=== PATIENT | female | born 1950 | race Caucasian/White ===

== ENCOUNTER 2017-07-21 09:36 | Emergency (ER) | payer OTHER, MEDICARE ==
--- NOTE | 2017-07-21 10:15 | ED CARDIAC/CP/PALPITATIONS ---
History of Present Illness General Chief Complaint: Palpitations Stated Complaint: PALPITATIONS,SOB Source: patient Exam Limitations: no limitations Vital Signs & Intake/Output Vital Signs & Intake/Output Vital Signs Date Time Temp Pulse Resp B/P B/P Pulse O2 O2 Flow FiO2 Mean Ox Delivery Rate 07/21 1136 97.0 63 16 138/65 95 Room Air Room Air 07/21 1024 97 Room Air 07/21 0947 96.5 72 16 164/61 96 Room Air Allergies Coded Allergies: Sulfa (Sulfonamide Antibiotics) (Intermediate, HIVES 07/21/17) Reconcile Medications Atenolol 25 MG TABLET 1 TAB PO DAILY HTN (Reported) Lisinopril 20 MG TABLET 1 TAB PO DAILY HTN (Reported) Omeprazole 20 MG CAPSULE. 1 CAP PO DAILY GERD (Reported) Triage Note: PT TO ED C/O PALPITATIONS SINCE THIS AM. DENIES ANY CP. HR IN 70'S VIA EKG. REPORTS SHE HAS HAD SOB OVER THE PAST FEW DAYS WELL. HR FLUCTUATING ON FINGER PROBE. UPON RADIAL PALPATION PT NOTED TO HAVE IRREGULAR RHYTHM. Triage Nurses Notes Reviewed? yes Onset: YEST Duration: hour(s):, continues in ED, intermittent, waxing and waning Timing: remote history Quality/Severity: IRREG HR Location: substernal Activities at Onset: AT WORK (NOT EXERTING HERSELF) HPI: Patient presents for evaluation of palpitations that began yesterday while at work. Past History Travel History Traveled to [place] past 21 day No Medical History Any Pertinent Medical History? see below for history Neurological: NONE EENT: NONE Cardiovascular: hypertension, hyperlipidemia Gastrointestinal: GERD Renal: NONE Musculoskeletal: NONE Psychiatric: NONE Endocrine: NONE Blood Disorders: NONE Cancer(s): NONE ELIGIBILITY EXAMINER/Reproductive: NONE Surgical History Surgical History: non-contributory Psychosocial History What is your primary language Khmer Tobacco Use: Never used Family History Hx Contributory? No Review of Systems Review of Systems Constitutional: Reports: no symptoms. EENTM: Reports: no symptoms. Respiratory: Reports: see HPI. Cardiovascular: Reports: see HPI. GI: Reports: no symptoms. Genitourinary: Reports: no symptoms. Musculoskeletal: Reports: no symptoms. Skin: Reports: no symptoms. Neurological/Psychological: Reports: no symptoms. Hematologic/Endocrine: Reports: no symptoms. Immunologic/Allergic: Reports: no symptoms. All Other Systems: Reviewed and Negative Physical Exam Physical Exam Cardiovascular: see below Comments: Gen.: Well-nourished, well-developed, no acute respiratory distress. Head: Normocephalic, atraumatic. Eyes: Normal inspection bilaterally Ears: Normal inspection bilaterally Nose: Normal inspection Throat/mouth : Moist mucosa Neck: Supple, full range of motion, no goiter Heart: Regular rate and rhythm, no murmurs rubs or gallops Lungs: Clear to auscultation bilaterally with normal air entry Chest: Nontender Back: Normal range of motion Abdomen: Soft, nontender, nondistended, normal bowel sounds Extremities: Normal range of motion grossly, equal radial pulses, no cyanosis clubbing or edema Neurologic: Cranial nerves grossly intact, speech is clear Skin: warm and dry Psychiatric: Calm, cooperative, no apparent delusions or hallucinations Core Measures ACS in differential dx? No CVA/TIA Diagnosis No Sepsis Present: No Sepsis Focused Exam Completed? No Progress Differential Diagnosis: atrial fibrillation, sinus tachycardia, PVCs, PACs, electrolyte abnormality, dehydration, acute coronary syndrome Plan of Care: Orders Procedure Date/time Status URINALYSIS 07/21 1118 Complete Telemetry/[employer] 07/21 1015 Active THYROID STIMULATING HORMONE 07/21 1015 Complete TROPONIN LEVEL 07/21 1015 Complete MAGNESIUM 07/21 1015 Complete CBC WITHOUT DIFFERENTIAL 07/21 1015 Complete CALCIUM 07/21 1015 Complete BASIC METABOLIC PANEL 07/21 1015 Complete EKG 07/21 0937 Active Laboratory Tests 07/21/17 1120: Urinalysis LIGHT H, Urine Color STRAW, Urine Clarity CLEAR, Urine pH 6.0, Ur Specific [place] <= 1.005, Urine Protein NEG, Urine Ketones NEG, Urine Nitrite NEG, Urine Bilirubin NEG, Urine Urobilinogen 0.2, Ur Leukocyte Esterase SMALL H , Ur Microscopic SEDIMENT EXAMINED, Urine RBC RARE, Urine WBC RARE, Ur Epithelial Cells FEW, Urine Bacteria RARE H, Urine Mucus RARE, Urine Hemoglobin NEG, Urine Glucose NEG 07/21/17 1020: Anion Gap 13, Estimated GFR > 60, BUN/Creatinine Ratio 25.7 H, Glucose 112 H, Calcium 10.4 H, Magnesium 1.8, Troponin I < 0.01, TSH 2.830, CBC w Diff NO MAN DIFF REQ, RBC 4.58, MCV 87.4, MCH 27.9, MCHC 32.0 L, RDW 14.9 H, MPV 8.6, Gran % 62.7, Lymphocytes % 27.4, Monocytes % 4.8, Eosinophils % 4.6, Basophils % 0.5, Absolute Granulocytes 5.5, Absolute Lymphocytes 2.4, Absolute Monocytes 0.4, Absolute Eosinophils 0.4, Absolute Basophils 0 Diagnostic Imaging: Discussed w/RAD: Radiology Read. CXR Impression: PATIENT: BRAEDEN RODRIGUEZ PRESENT AGE: 67 PATIENT ACCOUNT NO: [id number] : 50 LOCATION: [facility] ORDERING PHYSICIAN: Roge Londono MD SERVICE DATE: 07/21/17 EXAM TYPE: RAD - XRY-CHEST XRAY, TWO VIEWS EXAMINATION: XR CHEST CLINICAL INFORMATION: Palpitations COMPARISON: 12/07/2015 TECHNIQUE: 2 views of the chest were obtained. FINDINGS: Lung volumes are symmetric. No focal consolidation is seen. There is mild linear left basilar opacity favoring atelectasis. No evidence of pneumothorax, pleural effusion, or pulmonary edema. Cardiac size appears near the upper limits of normal. Calcification is present at the aortic arch. No acute osseous findings are seen. IMPRESSION: No acute cardiopulmonary findings. Linear left basilar atelectasis. DICTATED BY: Chun Medina MD DATE/TIME DICTATED:07/21/171057 SWITCHMAN:FAUSTO DATE/TIME TRANSCRIBED:07/21/171057 CONFIDENTIAL, DO NOT COPY WITHOUT APPROPRIATE AUTHORIZATION. <Electronically signed in Other Vendor System> SIGNED BY: Chun Medina MD 07/21/17 1107 Initial ED EKG: NSR, rate (73), nonspecific ST T wave chg, pvc's Comments: 07/21/2017 1:20:46 PM patient's case discussed with Dr. Cui who feels the patient should follow-up in his office for reevaluation. Given her current heart rate and blood pressure he is reluctant to adjust medications at this time. Departure Departure Disposition: HOME OR SELF CARE Condition: Stable Clinical Impression Primary Impression: PVCs (premature ventricular contractions) Referrals: Marcelo Tijerina MD (PCP/Family) Additional Instructions: Rest, no exertion or heavy lifting. Contact Dr. Cui's office today and arrange for a follow-up appointment for Monday or Monday. Continue your current medications. Return if any concerns or sudden worsening. Thank you for choosing the [facility] Emergency Department for your care. It was a pleasure to serve you today. Roge Londono M.D. [facility] Departure Forms: Customer Survey General Discharge Information Critical Care Note Critical Care Note Critical Care Time: non-applicable
[2017-07-21] MEDS ORDERED: ATENOLOL25 M1 PO (10:26)
[2017-07-21] MEDS ORDERED: OMEPRAZOLE20 M2 PO (10:26)
[2017-07-21] MEDS ORDERED: LISINOPRIL20 M1 PO (10:26)
[2017-07-21 10:27] LABS: ABSOLUTE BASOPHIL COUNT 0 /CUMM (0.0-0.2); ABSOLUTE EOSINOPHIL COUNT 0.4 /CUMM (0.0-0.7); ABSOLUTE GRANULOCYTE CT 5.5 /CUMM (1.4-6.5); ABSOLUTE LYMPH COUNT 2.4 /CUMM (1.2-3.4); ABSOLUTE MONOCYTE COUNT 0.4 /CUMM (0.10-0.60); BASOPHIL % 0.5 % (0.0-2.0); EOSINOPHIL % 4.6 % (0-5); GRANULOCYTE % 62.7 % (42.2-75.2); MEAN CORPUSCULAR HGB 27.9 PG (27.0-31.0); MEAN CORPUSCULAR VOLUME 87.4 FL (81.0-99.0); MEAN PLATELET VOLUME 8.6 FL (7.4-10.4); PLATELET COUNT 322 /CUMM (130-400); RBC DISTRIBUTION WIDTH 14.9 % (11.5-14.5); RED BLOOD CELL CT 4.58 /CUMM (4.20-5.40); WHITE BLOOD CELL COUNT 8.8 /CUMM (4.8-10.8)
--- NOTE | 2017-07-21 11:07 | RADIOLOGY REPORT ---
EXAMINATION: XR CHEST CLINICAL INFORMATION: Palpitations COMPARISON: 12/07/2015 TECHNIQUE: 2 views of the chest were obtained. FINDINGS: Lung volumes are symmetric. No focal consolidation is seen. There is mild linear left basilar opacity favoring atelectasis. No evidence of pneumothorax, pleural effusion, or pulmonary edema. Cardiac size appears near the upper limits of normal. Calcification is present at the aortic arch. No acute osseous findings are seen. IMPRESSION: No acute cardiopulmonary findings. Linear left basilar atelectasis.
[2017-07-21 14:26] VITALS: BP 134/68
== END 2017-07-21 14:26 ==
LOC: ERH 09:36
PROVIDERS: Emergency Medicine
DX: I49.3 Ventricular premature depolarization (principal)
CPT/HCPCS: 71046; 81001